=== PATIENT | male | born 1980 | race African-American/Black ===

== ENCOUNTER 2020-07-29 14:59 | Emergency (ER) | payer OTHER ==
[~2020-07-29] VITALS: Ht 177.8 cm; Wt 109.3 kg
[2020-07-29 15:05] VITALS: BP 134/71
[2020-07-29] MEDS ORDERED: SULF1TAB24 PO (15:15)
--- NOTE | 2020-07-29 15:15 | PHYS DOC ---
General Adult EDM: Chief Complaint: FINGER Infection HPI: HPI: Patient is a 40-year-old male who presented to ER due to left fourth finger swelling ,infected for the last 2 days. Patient denies any injury. Review of Systems: Review of Systems: Constitutional: Denies fever or chills Eyes: Denies change in visual acuity HENT: Denies nasal congestion or sore throat Respiratory: Denies cough or shortness of breath Cardiovascular: Denies chest pain or edema GI: Denies abdominal pain, nausea, vomiting, bloody stools or diarrhea : Denies dysuria Musculoskeletal: Denies back pain or joint pain Integument: positive for left 4th finger swelling and pain Neurologic: Denies headache, focal weakness or sensory changes Endocrine: Denies polyuria or polydipsia Lymphatic: Denies swollen glands Psychiatric: Denies depression or anxiety Allergies: Allergies: Allergies Coded Allergies Type Severity Reaction Last Updated Verified No Known Drug Allergies 07/29/20 No Physical Exam: PE: Constitutional: Well developed, well nourished, no acute distress, non-toxic appearance. [] HENT: Normocephalic, atraumatic, bilateral external ears normal, oropharynx moist, no oral exudates, nose normal. [] Eyes: PERRLA, EOMI, conjunctiva normal, no discharge. [] Neck: Normal range of motion, no tenderness, supple, no stridor. [] Cardiovascular:Heart rate regular rhythm, no murmur [] Lungs & Thorax: Bilateral breath sounds clear to auscultation [] Abdomen: Bowel sounds normal, soft, no tenderness, no masses, no pulsatile masses. [] Skin: Warm, dry, no erythema, no rash. Left 4th finger nail is swollen, the area lateral to nailbed is swollen and tender. Back: No tenderness, no CVA tenderness. [] Extremities: No tenderness, no cyanosis, no clubbing, ROM intact, no edema. [] Neurologic: Alert and oriented X 3, normal motor function, normal sensory function, no focal deficits noted. [] Psychologic: Affect normal, judgement normal, mood normal. [] EKG: EKG: [] Radiology/Procedures: Radiology/Procedures: Indication: left 4th finger paronychia Procedure: The patient was positioned appropriately and the skin over the incision site was cleaned with betadine, Local anesthesia was achieved with digital block with .25 % marcaine. An incision was then made over the lateral side of nailebed and moderate amount of purulent material was expressed. Loculations were probed The patients tetanus status was up to date. The patient tolerated the procedure well. Complications: none Heart Score: C/O Chest Pain: N/A Risk Factors: Risk Factors: DM, Current or recent (<one month) smoker, HTN, HLP, family history of CAD, obesity. Risk Scores: Score 0 - 3: 2.5% MACE over next 6 weeks - Discharge Home Score 4 - 6: 20.3% MACE over next 6 weeks - Admit for Clinical Observation Score 7 - 10: 72.7% MACE over next 6 weeks - Early Invasive Strategies Course & Med Decision Making: Course & Med Decision Making Pertinent Labs and Imaging studies reviewed. (See chart for details) [] Dragon Disclaimer: Dragon Disclaimer: This electronic medical record was generated, in whole or in part, using a voice recognition dictation system. Departure Departure: Impression: Primary Impression: Paronychia, acute, finger Disposition: 01 DC HOME SELF CARE/HOMELESS Condition: STABLE Referrals: NEREYDA BEAVERS (PCP) follow up with your doctor this week for reevaluation Patient Instructions: Paronychia Additional Instructions: Thank you for visiting our Emergency Department. We appreciate you trusting us with your care. If any additional problems come up don't hesitate to return to visit us. Please follow up with your primary care provider so they can plan additional care if needed and know about the problem that you had. If symptoms worsen come back to the Emergency Department. Any concerning symptoms that start such as chest pain, shortness of air, weakness or numbness on one side of the body, running high fevers or any other concerning symptoms return to the ER. Scripts Sulfamethoxazole/Trimethoprim (BACTRIM DS TABLET) 1 Each Tablet 1 TAB PO BID for finger infection for 10 Days, #20 TAB 0 Refills Prov: TRAVIS GARCIA DO 07/29/20 TRAVIS GARCIA DO Jul 29, 2020 15:15
== END 2020-07-29 15:54 | disposition home or self-care (01) ==
LOC: ER 14:59
DX: L03.012 Cellulitis of left finger (principal)
CPT/HCPCS: 10060; 99283